=== PATIENT | male | born 1940 | race Hispanic/Latino ===

== ENCOUNTER 2021-12-01 08:10 | Inpatient (IN) | payer MEDICARE ==
[~2021-12-01] VITALS: Ht 160 cm; Wt 78.5 kg
[2021-12-01] MEDS ORDERED: SODIUM CHLORIDE 0.9% 1000ML 1,000 ML IV STA (08:40)
[2021-12-01] MEDS ORDERED: ONDANSETRON HCL INJ 2MG/ML 2ML 2 MG/ML VIAL IV STA (08:40)
[2021-12-01] MEDS ORDERED: Morphine 4mg Syringe 4 MG/ML INJ IV STA (08:40)
[2021-12-01] MEDS ORDERED: SODIUM CHLORIDE 0.9% 1000ML 1,000 ML ONE (09:27)
[2021-12-01] MEDS ORDERED: DEXTROSE 50% SYRINGE 50 ML IV PRN (09:30)
[2021-12-01] MEDS ORDERED: FLOMAX0.4 MG PO (11:16)
[2021-12-01] MEDS ORDERED: AMLODIPINE BESYL5 MG PO (11:16)
[2021-12-01] MEDS ORDERED: METFORMIN HCL500 MG PO (11:16)
[2021-12-01] MEDS ORDERED: IRBESARTAN150 MG PO (11:16)
[2021-12-01] MEDS ORDERED: ACTOS15 MG PO (11:16)
[2021-12-01] MEDS ORDERED: SYNTHROID50 MCG PO (11:16)
[2021-12-01] MEDS ORDERED: SIMVASTATIN40 MG PO (11:16)
[2021-12-01] MEDS ORDERED: NEURONTIN100 MG PO (11:16)
[2021-12-01] MEDS ORDERED: ASPIRIN81 MG PO (11:16)
[2021-12-01] MEDS: INSULIN REGULAR, HUMAN 100 UNIT/1 ML SQ SCH ×3 (11:30→21:00)
[2021-12-01 12:39] VITALS: BP 151/75
[2021-12-01 14:16] LABS: CREATINE KINASE 56 IU/L (30-200)
[2021-12-01 15:17] VITALS: BP 151/75
[2021-12-01 15:29] VITALS: BP 151/75
[2021-12-01 16:32] VITALS: BP 123/67
[2021-12-01 20:00] VITALS: BP 103/83
[2021-12-01 20:57] LABS: CREATINE KINASE 52 IU/L (30-200)
[2021-12-01] MEDS: ONDANSETRON HCL INJ 2MG/ML 2ML 2 MG/ML VIAL IV PRN (21:59)
[2021-12-01] MEDS: Morphine 4mg Syringe 4 MG/ML INJ IV PRN (21:59)
[2021-12-02] VITALS (7 sets, daily range): BP systolic 116–145; BP diastolic 47–76
[2021-12-02 07:11] LABS: BASOPHILS % 0.7 % (0.0-1.0); EOSINOPHILS # (AUTO) 0.2 (0.0-0.4); EOSINOPHILS % 3.8 % (0.0-6.0); HEMATOCRIT 37.8 % (38.2-49.6); HEMOGLOBIN 12.3 g/dL (14.0-18.0); LYMPHOCYTES # (AUTO) 0.7 (1.0-3.2); LYMPHOCYTES % 11.7 % (18.0-39.1); MEAN CORPUSCULAR HEMOGLOBIN 29.2 pg (28-32); MEAN CORPUSCULAR HGB CONC 32.5 g/dL (31-35); MEAN CORPUSCULAR VOLUME 89.8 fL (81-99); MONOCYTES # (AUTO) 0.7 (0.2-0.8); NEUTROPHILS # (AUTO) 4.1 (2.1-6.9); NEUTROPHILS % 70.6 % (38.7-80.0); PLATELET COUNT 522 x10e3/uL (140-360); RED BLOOD COUNT 4.21 x10e6/uL (4.3-5.7); RED CELL DISTRIBUTION WIDTH 14.1 % (11.7-14.4)
[2021-12-02] MEDS: INSULIN REGULAR, HUMAN 100 UNIT/1 ML SQ SCH ×4 (07:30→21:00)
[2021-12-02 07:31] LABS: CREATINE KINASE 48 IU/L (30-200)
[2021-12-02 07:33] LABS: ALBUMIN/GLOBULIN RATIO 0.7 (0.8-2.0); ANION GAP 13.2 mmol/L (8-16); CALCIUM 9.2 mg/dL (8.4-10.2); CREATININE, SERUM 2.53 mg/dL (0.72-1.25); POTASSIUM 5.2 mmol/L (3.5-5.1)
[2021-12-02] MEDS: Morphine 4mg Syringe 4 MG/ML INJ IV PRN (09:53)
[2021-12-02] MEDS: ONDANSETRON HCL INJ 2MG/ML 2ML 2 MG/ML VIAL IV PRN ×2 (09:53→13:00)
[2021-12-02] MEDS: TAMSULOSIN HCL 0.4 MG CAP PO SCH (09:54)
[2021-12-02] MEDS: AMLODIPINE BESYLATE 5 MG TAB PO SCH (09:54)
[2021-12-02] MEDS ORDERED: IRBESARTAN 150 MG TAB PO SCH (10:00)
[2021-12-02 11:06] LABS: CHOL/HDL RATIO 3.8 (3.9-4.7)
[2021-12-02] MEDS ORDERED: SODIUM CHLORIDE 0.9% 1000ML 1,000 ML IV ONE (11:30)
[2021-12-02] MEDS ORDERED: BISACODYL 10 MG SUPP PR ONE (11:45)
[2021-12-02] MEDS: DOCUSATE SODIUM 100 MG CAP PO SCH ×2 (11:45→16:15)
[2021-12-02] MEDS: SENNOSIDES 8.6 MG TAB PO SCH ×2 (11:45→22:16)
[2021-12-02] MEDS: GABAPENTIN 100 MG CAP PO SCH ×2 (15:00→22:16)
[2021-12-02] MEDS: SODIUM CHLORIDE 0.9% 1000ML 1,000 ML IV SCH (18:45)
[2021-12-02 19:51] LABS: CALCIUM 8.8 mg/dL (8.4-10.2); CREATININE, SERUM 2.27 mg/dL (0.72-1.25)
[2021-12-02] MEDS: SIMVASTATIN 40 MG TAB PO SCH (22:16)
[2021-12-02 23:13] LABS: CLARITY,URINE CLEAR (CLEAR); COLOR,URINE YELLOW (YELLOW); LEUKOCYTE ESTERASE ,URINE 1+ (NEGATIVE); NITRITE,URINE NEGATIVE (NEGATIVE); PROTEIN,URINE DIPSTICK TRACE (NEGATIVE)
[2021-12-02 23:14] LABS: KETONES,URINE 1+ (NEGATIVE); URINE UROBILINOGEN 0.2 mg/dL (0.2 - 1)
[2021-12-02 23:24] LABS: BACTERIA,URINE MODERATE /HPF; EPITHELIAL CELLS,URINE FEW /LPF; RBC,URINE 0-5 /HPF (0-5); WBC,URINE (MAN) >50 /HPF (0-5)
[2021-12-03] VITALS (8 sets, daily range): BP systolic 138–157; BP diastolic 61–70
[2021-12-03] MEDS: SODIUM CHLORIDE 0.9% 1000ML 1,000 ML IV SCH ×2 (00:28→14:45)
[2021-12-03] MEDS: LEVOTHYROXINE SODIUM 50 MCG TAB PO SCH (05:23)
[2021-12-03] MEDS ORDERED: SOD POLYSTYRENE SULFONATE SUSP 15 GM/60 ML BTL PO ONE (07:30)
[2021-12-03] MEDS: INSULIN REGULAR, HUMAN 100 UNIT/1 ML SQ SCH ×4 (07:30→20:22)
[2021-12-03] MEDS: GABAPENTIN 100 MG CAP PO SCH ×3 (09:00→20:19)
[2021-12-03] MEDS: DOCUSATE SODIUM 100 MG CAP PO SCH ×2 (09:00→15:55)
[2021-12-03] MEDS: ASPIRIN 81 MG CHEW TAB PO SCH (09:00)
[2021-12-03] MEDS: SENNOSIDES 8.6 MG TAB PO SCH ×2 (09:00→20:19)
[2021-12-03] MEDS: TAMSULOSIN HCL 0.4 MG CAP PO SCH (09:00)
[2021-12-03] MEDS: AMLODIPINE BESYLATE 5 MG TAB PO SCH (09:00)
[2021-12-03 10:39] LABS: ANION GAP 14.9 mmol/L (8-16); CALCIUM 8.9 mg/dL (8.4-10.2); CREATININE, SERUM 1.91 mg/dL (0.72-1.25); POTASSIUM 4.9 mmol/L (3.5-5.1)
[2021-12-03] MEDS: SIMVASTATIN 40 MG TAB PO SCH (20:19)
[2021-12-04] VITALS (7 sets, daily range): BP systolic 129–175; BP diastolic 60–83
[2021-12-04] MEDS: SODIUM CHLORIDE 0.9% 1000ML 1,000 ML IV SCH ×3 (00:47→21:30)
[2021-12-04] MEDS: LEVOTHYROXINE SODIUM 50 MCG TAB PO SCH (05:45)
[2021-12-04 05:58] LABS: BASOPHILS % 0.8 % (0.0-1.0); EOSINOPHILS # (AUTO) 0.2 (0.0-0.4); HEMATOCRIT 36.1 % (38.2-49.6); HEMOGLOBIN 11.5 g/dL (14.0-18.0); LYMPHOCYTES # (AUTO) 0.8 (1.0-3.2); LYMPHOCYTES % 17.8 % (18.0-39.1); MEAN CORPUSCULAR HEMOGLOBIN 29.3 pg (28-32); MEAN CORPUSCULAR HGB CONC 31.9 g/dL (31-35); MEAN CORPUSCULAR VOLUME 91.9 fL (81-99); MONOCYTES # (AUTO) 0.5 (0.2-0.8); NEUTROPHILS # (AUTO) 3.1 (2.1-6.9); NEUTROPHILS % 65.6 % (38.7-80.0); PLATELET COUNT 482 x10e3/uL (140-360); RED BLOOD COUNT 3.93 x10e6/uL (4.3-5.7); RED CELL DISTRIBUTION WIDTH 14.1 % (11.7-14.4)
[2021-12-04 06:25] LABS: ANION GAP 12.5 mmol/L (8-16); CALCIUM 8.7 mg/dL (8.4-10.2); CREATININE, SERUM 1.73 mg/dL (0.72-1.25); POTASSIUM 4.5 mmol/L (3.5-5.1)
[2021-12-04] MEDS: INSULIN REGULAR, HUMAN 100 UNIT/1 ML SQ SCH ×5 (07:30→21:53)
[2021-12-04] MEDS: DOCUSATE SODIUM 100 MG CAP PO SCH ×2 (08:45→16:22)
[2021-12-04] MEDS: GABAPENTIN 100 MG CAP PO SCH ×3 (08:45→21:30)
[2021-12-04] MEDS: SENNOSIDES 8.6 MG TAB PO SCH ×2 (08:45→21:00)
[2021-12-04] MEDS: ASPIRIN 81 MG CHEW TAB PO SCH (08:45)
[2021-12-04] MEDS: TAMSULOSIN HCL 0.4 MG CAP PO SCH (08:45)
[2021-12-04] MEDS: AMLODIPINE BESYLATE 5 MG TAB PO SCH (08:45)
[2021-12-04] MEDS: SIMVASTATIN 40 MG TAB PO SCH (21:30)
[2021-12-05] VITALS: BP 164/75
[2021-12-05 04:00] VITALS: BP 168/78
[2021-12-05 05:26] LABS: BASOPHILS % 0.9 % (0.0-1.0); EOSINOPHILS # (AUTO) 0.3 (0.0-0.4); EOSINOPHILS % 5.6 % (0.0-6.0); HEMATOCRIT 32.4 % (38.2-49.6); HEMOGLOBIN 10.3 g/dL (14.0-18.0); LYMPHOCYTES # (AUTO) 0.5 (1.0-3.2); LYMPHOCYTES % 12.2 % (18.0-39.1); MEAN CORPUSCULAR HEMOGLOBIN 28.9 pg (28-32); MEAN CORPUSCULAR HGB CONC 31.8 g/dL (31-35); MONOCYTES # (AUTO) 0.4 (0.2-0.8); MONOCYTES % 9.7 % (4.4-11.3); NEUTROPHILS # (AUTO) 3.1 (2.1-6.9); NEUTROPHILS % 70.7 % (38.7-80.0); PLATELET COUNT 421 x10e3/uL (140-360); RED BLOOD COUNT 3.56 x10e6/uL (4.3-5.7)
[2021-12-05 05:43] LABS: ANION GAP 12.1 mmol/L (8-16); CALCIUM 8.1 mg/dL (8.4-10.2); CREATININE, SERUM 1.53 mg/dL (0.72-1.25); POTASSIUM 5.1 mmol/L (3.5-5.1)
[2021-12-05] MEDS: SODIUM CHLORIDE 0.9% 1000ML 1,000 ML IV SCH ×2 (06:10→13:52)
[2021-12-05] MEDS: LEVOTHYROXINE SODIUM 50 MCG TAB PO SCH (06:10)
[2021-12-05] MEDS: INSULIN REGULAR, HUMAN 100 UNIT/1 ML SQ SCH ×2 (07:30→11:30)
[2021-12-05 08:47] VITALS: BP 171/81
[2021-12-05] MEDS: SENNOSIDES 8.6 MG TAB PO SCH (09:09)
[2021-12-05] MEDS: AMLODIPINE BESYLATE 5 MG TAB PO SCH (09:09)
[2021-12-05] MEDS: TAMSULOSIN HCL 0.4 MG CAP PO SCH (09:09)
[2021-12-05] MEDS: DOCUSATE SODIUM 100 MG CAP PO SCH (09:09)
[2021-12-05] MEDS: GABAPENTIN 100 MG CAP PO SCH (09:09)
[2021-12-05] MEDS: ASPIRIN 81 MG CHEW TAB PO SCH (09:09)
[2021-12-05 09:17] VITALS: BP 171/81
[2021-12-05] MEDS ORDERED: ONDANSETRON HCL 4 MG ORAL DISINTEGRATING TAB PO PRN (10:30)
[2021-12-05 12:25] VITALS: BP 149/71
== END 2021-12-05 14:49 | disposition home or self-care (01) | DRG 392 ==
LOC: FSED 08:18 → ERHOLD 09:26 → MED/SURG2 11:56 → OBSVTOIN 12-02 15:35
PROVIDERS: ADMIT Internal Medicine; ATTEND Internal Medicine
DX: K52.9 Noninfective gastroenteritis and colitis, unspecified (principal); N17.9 Acute kidney failure, unspecified; E11.65 Type 2 diabetes mellitus with hyperglycemia; I10 Essential (primary) hypertension; E03.9 Hypothyroidism, unspecified; E87.5 Hyperkalemia; E66.9 Obesity, unspecified; Z68.30 Body mass index [BMI] 30.0-30.9, adult; Z20.822 Contact with and (suspected) exposure to COVID-19; Z79.82 Long term (current) use of aspirin; Z79.84 Long term (current) use of oral hypoglycemic drugs
CPT/HCPCS: 36415; 74176; 76770; 80048; 80053; 80061; 81001; 82550; 82553; 82948; 83036; 84484; 85025; 93005; 96361; 96372; 99251; 99284; G0378; J1817; J2270; J2405; J7030; U0002

== ENCOUNTER 2022-04-11 00:02 | Emergency (ER) | payer MEDICARE ==
[~2022-04-11] VITALS: Ht 160 cm; Wt 78.5 kg
[~2022-04-11 00:02] MED LIST: ACTOS15 MG PO; AMLODIPINE BESYL5 MG PO; ASPIRIN81 MG PO; FLOMAX0.4 MG PO; IRBESARTAN150 MG PO; METFORMIN HCL500 MG PO; NEURONTIN100 MG PO; SIMVASTATIN40 MG PO; SYNTHROID50 MCG PO
[2022-04-11] MEDS ORDERED: ONDANSETRON HCL INJ 2MG/ML 2ML 2 MG/ML VIAL IV STA (00:33)
[2022-04-11] MEDS ORDERED: KETOROLAC TROMETHAMINE 30 MG/ML VIAL IV STA (00:33)
[2022-04-11] MEDS ORDERED: Morphine 2mg Syringe 2 MG/ML SYR IV ONE (00:45)
[2022-04-11] MEDS ORDERED: KETOROLAC TROMETHAMINE 30 MG/ML VIAL ONE (01:11)
[2022-04-11] MEDS ORDERED: ONDANSETRON HCL INJ 2MG/ML 2ML 2 MG/ML VIAL ONE (01:12)
[2022-04-11] MEDS ORDERED: Morphine 4mg INJECTION 4 MG/ML INJ ONE (01:13)
[2022-04-11] MEDS ORDERED: CEFDINIR300 MG PO (02:34)
[2022-04-11] MEDS ORDERED: KETOROLAC TROME10 MG PO (02:34)
[2022-04-11 02:50] VITALS: BP 130/60
== END 2022-04-11 02:50 | disposition home or self-care (01) ==
LOC: FSED 00:06
DX: R10.9 Unspecified abdominal pain (principal); N13.2 Hydronephrosis with renal and ureteral calculous obstruction; M54.50 Low back pain, unspecified; E11.9 Type 2 diabetes mellitus without complications; E78.5 Hyperlipidemia, unspecified; E03.9 Hypothyroidism, unspecified; Z89.511 Acquired absence of right leg below knee
CPT/HCPCS: 74176; 80048; 80076; 81003; 85025; 96374; 96375; 96376; 99284; J1885; J2270; J2405

== ENCOUNTER 2022-04-14 22:03 | Emergency (ER) | payer MEDICARE ==
[~2022-04-14] VITALS: Ht 160 cm; Wt 78.5 kg
[~2022-04-14 22:03] MED LIST changes: +CEFDINIR300 MG PO; +KETOROLAC TROME10 MG PO
[2022-04-14] MEDS ORDERED: KETOROLAC TROME10 MG PO (22:10)
== END 2022-04-14 22:23 | disposition home or self-care (01) ==
LOC: ER 22:13
DX: R06.6 Hiccough (principal); R10.9 Unspecified abdominal pain; E11.9 Type 2 diabetes mellitus without complications; E78.5 Hyperlipidemia, unspecified; E03.9 Hypothyroidism, unspecified; Z89.511 Acquired absence of right leg below knee
CPT/HCPCS: 99282

== ENCOUNTER 2022-04-18 05:36 | Inpatient (IN) | payer MEDICARE ==
[2022-04-18] VITALS (7 sets, daily range): BP systolic 140–155; BP diastolic 70–83
[~2022-04-18] VITALS: Ht 160 cm; Wt 78.5 kg
[2022-04-18] MEDS ORDERED: SODIUM CHLORIDE 0.9% 1000ML 1,000 ML IV STA (06:06)
[2022-04-18 06:24] LABS: BASOPHILS % 0.4 % (0.0-1.0); EOSINOPHILS # (AUTO) 0.1 (0.0-0.4); HEMATOCRIT 32.2 % (38.2-49.6); HEMOGLOBIN 11.1 g/dL (14.0-18.0); LYMPHOCYTES # (AUTO) 0.5 (1.0-3.2); LYMPHOCYTES % 4.1 % (18.0-39.1); MEAN CORPUSCULAR HEMOGLOBIN 28.5 pg (28-32); MEAN CORPUSCULAR HGB CONC 34.5 g/dL (31-35); MEAN CORPUSCULAR VOLUME 82.8 fL (81-99); MONOCYTES # (AUTO) 0.8 (0.2-0.8); NEUTROPHILS # (AUTO) 9.1 (2.1-6.9); NEUTROPHILS % 81.8 % (38.7-80.0); PLATELET COUNT 315 x10e3/uL (140-360); RED BLOOD COUNT 3.89 x10e6/uL (4.3-5.7); RED CELL DISTRIBUTION WIDTH 14.9 % (11.7-14.4)
[2022-04-18 06:47] LABS: ALANINE AMINOTRANSFERASE 39 IU/L (0-55); ALBUMIN 2.8 g/dL (3.5-5.0); ALBUMIN/GLOBULIN RATIO 0.7 (0.8-2.0); ALKALINE PHOSPHATASE 150 IU/L (40-150); ANION GAP 18.5 mmol/L (8-16); BLOOD UREA NITROGEN 56 mg/dL (7-26); BUN/CREATININE RATIO 15 (6-25); CALCIUM 8.8 mg/dL (8.4-10.2); CARBON DIOXIDE 22 mmol/L (22-29); CHLORIDE 91 mmol/L (98-107); CREATINE KINASE 12 IU/L (30-200); GLUCOSE 277 mg/dL (74-118); LIPASE 226 U/L (8-78); MAGNESIUM 1.6 MG/DL (1.3-2.1); POTASSIUM 4.5 mmol/L (3.5-5.1); SODIUM 127 mmol/L (136-145)
[2022-04-18 06:48] LABS: CLARITY,URINE CLOUDY (CLEAR); COLOR,URINE YELLOW (YELLOW); KETONES,URINE TRACE (NEGATIVE); LEUKOCYTE ESTERASE ,URINE SMALL (NEGATIVE); NITRITE,URINE NEGATIVE (NEGATIVE); PROTEIN,URINE DIPSTICK 2+ (NEGATIVE); URINE UROBILINOGEN 0.2 mg/dL (0.2 - 1)
[2022-04-18 07:04] LABS: WBC,URINE (MAN) >50 /HPF (0-5)
[2022-04-18 07:05] LABS: BACTERIA,URINE MODERATE /HPF; EPITHELIAL CELLS,URINE FEW /LPF
[2022-04-18] MEDS ORDERED: ONDANSETRON HCL INJ 2MG/ML 2ML 2 MG/ML VIAL IV PRN (07:45)
[2022-04-18 12:42] LABS: CREATINE KINASE 11 IU/L (30-200)
[2022-04-18] MEDS: SODIUM CHLORIDE 0.9% 1000ML 1,000 ML IV SCH ×2 (12:48→17:45)
[2022-04-18] MEDS: FAMOTIDINE 20 MG/2 ML VIAL IV SCH ×2 (12:48→21:00)
[2022-04-18 18:52] LABS: CREATINE KINASE 7 IU/L (30-200)
[2022-04-18] MEDS ORDERED: ACETAMINOPHEN 325 MG TAB PO PRN (20:30)
[2022-04-18] MEDS: GABAPENTIN 100 MG CAP PO SCH (21:00)
[2022-04-18] MEDS: SIMVASTATIN 40 MG TAB PO SCH (21:00)
[2022-04-19] VITALS (8 sets, daily range): BP systolic 104–170; BP diastolic 62–79
[2022-04-19] MEDS: SODIUM CHLORIDE 0.9% 1000ML 1,000 ML IV SCH ×2 (00:40→15:47)
[2022-04-19] MEDS: LEVOTHYROXINE SODIUM 50 MCG TAB PO SCH (05:47)
[2022-04-19 05:48] LABS: BASOPHILS # (AUTO) 0.1 (0.0-0.1); BASOPHILS % 0.5 % (0.0-1.0); EOSINOPHILS # (AUTO) 0.2 (0.0-0.4); EOSINOPHILS % 1.3 % (0.0-6.0); HEMATOCRIT 33.8 % (38.2-49.6); HEMOGLOBIN 11.6 g/dL (14.0-18.0); LYMPHOCYTES # (AUTO) 0.8 (1.0-3.2); LYMPHOCYTES % 6.6 % (18.0-39.1); MEAN CORPUSCULAR HEMOGLOBIN 28.3 pg (28-32); MEAN CORPUSCULAR HGB CONC 34.3 g/dL (31-35); MEAN CORPUSCULAR VOLUME 82.4 fL (81-99); MONOCYTES # (AUTO) 0.9 (0.2-0.8); MONOCYTES % 7.8 % (4.4-11.3); NEUTROPHILS # (AUTO) 9.2 (2.1-6.9); PLATELET COUNT 353 x10e3/uL (140-360); RED CELL DISTRIBUTION WIDTH 15.3 % (11.7-14.4)
[2022-04-19 06:18] LABS: ALBUMIN 2.5 g/dL (3.5-5.0); ALBUMIN/GLOBULIN RATIO 0.7 (0.8-2.0); CALCIUM 8.7 mg/dL (8.4-10.2); CHOL/HDL RATIO 7.8 (3.9-4.7); CREATININE, SERUM 3.08 mg/dL (0.72-1.25)
[2022-04-19 06:39] LABS: CREATINE KINASE MB 0.4 ng/mL (0-5.0)
[2022-04-19] MEDS: TAMSULOSIN HCL 0.4 MG CAP PO SCH (08:48)
[2022-04-19] MEDS: GABAPENTIN 100 MG CAP PO SCH ×3 (08:48→20:29)
[2022-04-19] MEDS: AMLODIPINE BESYLATE 5 MG TAB PO SCH (08:48)
[2022-04-19] MEDS: ASPIRIN 81 MG CHEW TAB PO SCH (08:48)
[2022-04-19] MEDS: FAMOTIDINE 20 MG/2 ML VIAL IV SCH ×2 (08:49→20:29)
[2022-04-19] MEDS ORDERED: CHLORPROMAZINE HCL 25 MG TAB PO PRN (11:30)
[2022-04-19] MEDS ORDERED: DEXTROSE 50% SYRINGE 50 ML IV PRN (11:45)
[2022-04-19] MEDS: INSULIN REGULAR, HUMAN 100 UNIT/1 ML SQ SCH ×3 (12:07→20:37)
[2022-04-19] MEDS: SIMVASTATIN 40 MG TAB PO SCH (20:29)
[2022-04-20] VITALS (8 sets, daily range): BP systolic 118–141; BP diastolic 62–70
[2022-04-20] MEDS: SODIUM CHLORIDE 0.9% 1000ML 1,000 ML IV SCH ×3 (01:42→20:15)
[2022-04-20] MEDS: LEVOTHYROXINE SODIUM 50 MCG TAB PO SCH (05:34)
[2022-04-20] MEDS: FAMOTIDINE 20 MG/2 ML VIAL IV SCH ×2 (08:22→20:14)
[2022-04-20] MEDS: GABAPENTIN 100 MG CAP PO SCH ×3 (08:22→20:14)
[2022-04-20] MEDS: TAMSULOSIN HCL 0.4 MG CAP PO SCH (08:22)
[2022-04-20] MEDS: AMLODIPINE BESYLATE 5 MG TAB PO SCH (08:22)
[2022-04-20] MEDS: ASPIRIN 81 MG CHEW TAB PO SCH (08:22)
[2022-04-20] MEDS: INSULIN REGULAR, HUMAN 100 UNIT/1 ML SQ SCH ×4 (08:31→20:48)
[2022-04-20 10:53] LABS: BASOPHILS # (AUTO) 0.1 (0.0-0.1); BASOPHILS % 0.4 % (0.0-1.0); EOSINOPHILS # (AUTO) 0.2 (0.0-0.4); EOSINOPHILS % 1.4 % (0.0-6.0); HEMATOCRIT 30.5 % (38.2-49.6); HEMOGLOBIN 10.3 g/dL (14.0-18.0); LYMPHOCYTES # (AUTO) 0.7 (1.0-3.2); LYMPHOCYTES % 4.8 % (18.0-39.1); MEAN CORPUSCULAR HEMOGLOBIN 28.3 pg (28-32); MEAN CORPUSCULAR HGB CONC 33.8 g/dL (31-35); MEAN CORPUSCULAR VOLUME 83.8 fL (81-99); MONOCYTES # (AUTO) 1.2 (0.2-0.8); MONOCYTES % 8.6 % (4.4-11.3); NEUTROPHILS # (AUTO) 10.6 (2.1-6.9); NEUTROPHILS % 77.7 % (38.7-80.0); PLATELET COUNT 329 x10e3/uL (140-360); RED BLOOD COUNT 3.64 x10e6/uL (4.3-5.7); RED CELL DISTRIBUTION WIDTH 15.7 % (11.7-14.4)
[2022-04-20] MEDS: LEVOFLOXACIN 250MG/D5W 50ML 50 ML IV SCH (10:57)
[2022-04-20] MEDS ORDERED: LEVOFLOXACIN 250MG/D5W 50ML 50 ML ONE (11:08)
[2022-04-20 11:10] LABS: ANION GAP 12.7 mmol/L (8-16); CALCIUM 8.1 mg/dL (8.4-10.2); CREATININE, SERUM 2.68 mg/dL (0.72-1.25); POTASSIUM 3.7 mmol/L (3.5-5.1)
[2022-04-20 14:53] LABS: EOSINOPHILS % (MANUAL) 1 % (0-7); LYMPHOCYTES % (MANUAL) 5 % (19-48); MONOCYTES % (MANUAL) 9 % (3.4-9.0); NEUTROPHILS % (MANUAL) 85 % (40-74); PLATELET ESTIMATE ADEQUATE; PLATELET MORPHOLOGY COMMENT NORMAL; RBC MORPHOLOGY COMMENT NORMAL
[2022-04-20 18:43] LABS: CREATININE,URINE RANDOM 25.15 mg/dL (63-166); TOTAL PROTEIN, URINE 29.3 mg/dL (1-14)
[2022-04-20] MEDS: SIMVASTATIN 40 MG TAB PO SCH (20:14)
[2022-04-21] VITALS (8 sets, daily range): BP systolic 139–166; BP diastolic 64–76
[2022-04-21] MEDS: LEVOTHYROXINE SODIUM 50 MCG TAB PO SCH (05:26)
[2022-04-21] MEDS: SODIUM CHLORIDE 0.9% 1000ML 1,000 ML IV SCH ×2 (05:26→16:00)
[2022-04-21 06:12] LABS: BASOPHILS # (AUTO) 0.1 (0.0-0.1); BASOPHILS % 0.5 % (0.0-1.0); EOSINOPHILS # (AUTO) 0.3 (0.0-0.4); EOSINOPHILS % 2.1 % (0.0-6.0); HEMATOCRIT 30.2 % (38.2-49.6); HEMOGLOBIN 10.6 g/dL (14.0-18.0); LYMPHOCYTES # (AUTO) 0.7 (1.0-3.2); LYMPHOCYTES % 4.8 % (18.0-39.1); MEAN CORPUSCULAR HEMOGLOBIN 28.9 pg (28-32); MEAN CORPUSCULAR HGB CONC 35.1 g/dL (31-35); MEAN CORPUSCULAR VOLUME 82.3 fL (81-99); MONOCYTES # (AUTO) 1.2 (0.2-0.8); MONOCYTES % 8.1 % (4.4-11.3); NEUTROPHILS # (AUTO) 11.2 (2.1-6.9); NEUTROPHILS % 76.5 % (38.7-80.0); PLATELET COUNT 389 x10e3/uL (140-360); RED BLOOD COUNT 3.67 x10e6/uL (4.3-5.7)
[2022-04-21 06:29] LABS: ANION GAP 16.9 mmol/L (8-16); CALCIUM 8.3 mg/dL (8.4-10.2); CREATININE, SERUM 2.49 mg/dL (0.72-1.25); POTASSIUM 3.9 mmol/L (3.5-5.1)
[2022-04-21 07:00] LABS: MAGNESIUM 1.5 MG/DL (1.3-2.1); PHOSPHORUS 2.9 MG/DL (2.3-4.7)
[2022-04-21] MEDS ORDERED: ONDANSETRON HCL 4 MG ORAL DISINTEGRATING TAB PO PRN (09:00)
[2022-04-21] MEDS: AMLODIPINE BESYLATE 5 MG TAB PO SCH (09:00)
[2022-04-21] MEDS: TAMSULOSIN HCL 0.4 MG CAP PO SCH (09:00)
[2022-04-21] MEDS: ASPIRIN 81 MG CHEW TAB PO SCH (09:00)
[2022-04-21] MEDS: GABAPENTIN 100 MG CAP PO SCH ×3 (09:00→22:56)
[2022-04-21] MEDS: FAMOTIDINE 20 MG/2 ML VIAL IV SCH ×2 (09:27→22:56)
[2022-04-21] MEDS: INSULIN REGULAR, HUMAN 100 UNIT/1 ML SQ SCH ×4 (10:02→22:57)
[2022-04-21] MEDS: LEVOFLOXACIN 250MG/D5W 50ML 50 ML IV SCH (11:39)
[2022-04-21] MEDS ORDERED: FUROSEMIDE INJ 10 MG/ML 4 ML VIAL ONE (14:28)
[2022-04-21] MEDS ORDERED: MAGNESIUM SULFATE 2GM/50ML 50 ML IV ONE (17:00)
[2022-04-21] MEDS: SIMVASTATIN 40 MG TAB PO SCH (22:56)
[2022-04-22] VITALS (8 sets, daily range): BP systolic 104–154; BP diastolic 51–74
[2022-04-22] MEDS: METOCLOPRAMIDE HCL 10 MG/2ML VIAL IV SCH ×4 (00:18→17:07)
[2022-04-22] MEDS: LEVOTHYROXINE SODIUM 50 MCG TAB PO SCH (05:18)
[2022-04-22] MEDS: SODIUM CHLORIDE 0.9% 1000ML 1,000 ML IV SCH ×2 (05:18→11:45)
[2022-04-22 08:02] LABS: ANION GAP 18.8 mmol/L (8-16); CALCIUM 8.9 mg/dL (8.4-10.2); CREATININE, SERUM 2.52 mg/dL (0.72-1.25); MAGNESIUM 2.2 MG/DL (1.3-2.1); POTASSIUM 3.8 mmol/L (3.5-5.1)
[2022-04-22] MEDS ORDERED: METOCLOPRAMIDE HCL 10 MG TAB PO SCH (09:00)
[2022-04-22] MEDS: AMLODIPINE BESYLATE 5 MG TAB PO SCH (09:58)
[2022-04-22] MEDS: TAMSULOSIN HCL 0.4 MG CAP PO SCH (09:58)
[2022-04-22] MEDS: FAMOTIDINE 20 MG/2 ML VIAL IV SCH ×2 (09:58→21:56)
[2022-04-22] MEDS: ASPIRIN 81 MG CHEW TAB PO SCH (09:58)
[2022-04-22] MEDS: GABAPENTIN 100 MG CAP PO SCH ×3 (10:04→21:56)
[2022-04-22] MEDS: INSULIN REGULAR, HUMAN 100 UNIT/1 ML SQ SCH ×4 (11:30→21:59)
[2022-04-22] MEDS: LEVOFLOXACIN 250MG/D5W 50ML 50 ML IV SCH (12:26)
[2022-04-22] MEDS: SIMVASTATIN 40 MG TAB PO SCH (21:56)
[2022-04-23] VITALS (8 sets, daily range): BP systolic 97–143; BP diastolic 56–80
[2022-04-23] MEDS: METOCLOPRAMIDE HCL 10 MG/2ML VIAL IV SCH ×5 (00:39→23:09)
[2022-04-23 06:18] LABS: BASOPHILS # (AUTO) 0.1 (0.0-0.1); BASOPHILS % 0.4 % (0.0-1.0); EOSINOPHILS # (AUTO) 0.4 (0.0-0.4); EOSINOPHILS % 3.4 % (0.0-6.0); HEMATOCRIT 28.4 % (38.2-49.6); HEMOGLOBIN 9.3 g/dL (14.0-18.0); LYMPHOCYTES # (AUTO) 0.7 (1.0-3.2); LYMPHOCYTES % 6.1 % (18.0-39.1); MEAN CORPUSCULAR HEMOGLOBIN 28.3 pg (28-32); MEAN CORPUSCULAR HGB CONC 32.7 g/dL (31-35); MEAN CORPUSCULAR VOLUME 86.3 fL (81-99); MONOCYTES # (AUTO) 1.1 (0.2-0.8); MONOCYTES % 8.7 % (4.4-11.3); NEUTROPHILS # (AUTO) 9.2 (2.1-6.9); NEUTROPHILS % 74.9 % (38.7-80.0); PLATELET COUNT 411 x10e3/uL (140-360); RED BLOOD COUNT 3.29 x10e6/uL (4.3-5.7); RED CELL DISTRIBUTION WIDTH 16.2 % (11.7-14.4)
[2022-04-23 06:39] LABS: ANION GAP 14.4 mmol/L (8-16); CREATININE, SERUM 2.46 mg/dL (0.72-1.25); POTASSIUM 3.4 mmol/L (3.5-5.1)
[2022-04-23] MEDS: LEVOTHYROXINE SODIUM 50 MCG TAB PO SCH (06:44)
[2022-04-23] MEDS: SODIUM CHLORIDE 0.9% 1000ML 1,000 ML IV SCH ×2 (06:44→20:38)
[2022-04-23] MEDS: INSULIN REGULAR, HUMAN 100 UNIT/1 ML SQ SCH ×4 (07:30→22:05)
[2022-04-23] MEDS: FAMOTIDINE 20 MG/2 ML VIAL IV SCH ×2 (09:00→20:38)
[2022-04-23] MEDS: ASPIRIN 81 MG CHEW TAB PO SCH (09:00)
[2022-04-23] MEDS: GABAPENTIN 100 MG CAP PO SCH ×3 (09:00→20:38)
[2022-04-23] MEDS: AMLODIPINE BESYLATE 5 MG TAB PO SCH (09:00)
[2022-04-23] MEDS: TAMSULOSIN HCL 0.4 MG CAP PO SCH (09:00)
[2022-04-23] MEDS: LEVOFLOXACIN 250MG/D5W 50ML 50 ML IV SCH (11:00)
[2022-04-23] MEDS ORDERED: MAGNESIUM HYDROXIDE 30 ML UDC PO PRN (13:45)
[2022-04-23] MEDS: DOCUSATE SODIUM 100 MG CAP PO SCH (15:03)
[2022-04-23] MEDS: SIMVASTATIN 40 MG TAB PO SCH (20:39)
[2022-04-24 00:44] VITALS: BP 122/56
[2022-04-24] MEDS: SODIUM CHLORIDE 0.9% 1000ML 1,000 ML IV SCH (02:08)
[2022-04-24 04:30] VITALS: BP 143/65
[2022-04-24] MEDS: LEVOTHYROXINE SODIUM 50 MCG TAB PO SCH (05:39)
[2022-04-24] MEDS: METOCLOPRAMIDE HCL 10 MG/2ML VIAL IV SCH (05:39)
[2022-04-24 08:10] VITALS: BP 159/72
[2022-04-24 08:46] VITALS: BP 159/72
[2022-04-24] MEDS ORDERED: SENNOSIDES 8.6 MG TAB PO SCH (09:00)
[2022-04-24] MEDS: GABAPENTIN 100 MG CAP PO SCH (09:32)
[2022-04-24] MEDS: AMLODIPINE BESYLATE 5 MG TAB PO SCH (09:32)
[2022-04-24] MEDS: TAMSULOSIN HCL 0.4 MG CAP PO SCH (09:32)
[2022-04-24] MEDS: ASPIRIN 81 MG CHEW TAB PO SCH (09:33)
[2022-04-24] MEDS: DOCUSATE SODIUM 100 MG CAP PO SCH (09:33)
[2022-04-24] MEDS: FAMOTIDINE 20 MG/2 ML VIAL IV SCH (09:33)
[2022-04-24] MEDS: INSULIN REGULAR, HUMAN 100 UNIT/1 ML SQ SCH (09:41)
[2022-04-24] MEDS ORDERED: PANTOPRAZOLE SO40 MG PO (10:28)
[2022-04-24] MEDS ORDERED: Docusate Sodium PO (10:28)
[2022-04-24] MEDS ORDERED: REGLAN5 MG PO (10:29)
[2022-04-24] MEDS ORDERED: LEVOFLOXACIN250 MG PO (10:31)
== END 2022-04-24 10:59 | disposition home or self-care (01) | DRG 683 ==
LOC: ER 05:46 → ERHOLD 07:44 → MED/SURG3 09:45
PROVIDERS: ADMIT Internal Medicine; ATTEND Internal Medicine
DX: N17.9 Acute kidney failure, unspecified (principal); E87.1 Hypo-osmolality and hyponatremia; N13.8 Other obstructive and reflux uropathy; K21.9 Gastro-esophageal reflux disease without esophagitis; N13.6 Pyonephrosis; N18.4 Chronic kidney disease, stage 4 (severe); N10 Acute pyelonephritis; R06.6 Hiccough; Z89.511 Acquired absence of right leg below knee; Z89.412 Acquired absence of left great toe; Z20.822 Contact with and (suspected) exposure to COVID-19; E78.5 Hyperlipidemia, unspecified; E11.69 Type 2 diabetes mellitus with other specified complication; Z79.4 Long term (current) use of insulin; F32.A Depression, unspecified; E11.65 Type 2 diabetes mellitus with hyperglycemia; E11.22 Type 2 diabetes mellitus with diabetic chronic kidney disease; I12.9 Hypertensive chronic kidney disease with stage 1 through stage 4 chronic kidney disease, or unspecified chronic kidney disease; E66.09 Other obesity due to excess calories; Z68.30 Body mass index [BMI] 30.0-30.9, adult; D64.9 Anemia, unspecified; R31.29 Other microscopic hematuria; R13.10 Dysphagia, unspecified; E03.9 Hypothyroidism, unspecified; N40.1 Benign prostatic hyperplasia with lower urinary tract symptoms; R33.8 Other retention of urine; B96.89 Other specified bacterial agents as the cause of diseases classified elsewhere; E83.42 Hypomagnesemia
CPT/HCPCS: 36415; 51700; 71045; 74176; 78708; 80048; 80053; 80061; 81001; 82550; 82553; 82570; 82948; 83518; 83690; 83735; 84100; 84156; 84443; 84484; 85025; 87070; 87086; 87186; 93005; 96361; 99251; 99285; A9562; J0696; J1817; J1940; J1956; J2405; J2765; J3475; J7030

== ENCOUNTER 2022-05-19 11:11 | Emergency (ER) | payer MEDICARE ==
[~2022-05-19] VITALS: Ht 160 cm; Wt 78.5 kg
[~2022-05-19 11:11] MED LIST changes: +Docusate Sodium PO; +LEVOFLOXACIN250 MG PO; +PANTOPRAZOLE SO40 MG PO; +REGLAN5 MG PO
== END 2022-05-19 11:49 | disposition home or self-care (01) ==
LOC: ER 11:16
DX: Z46.6 Encounter for fitting and adjustment of urinary device (principal); I10 Essential (primary) hypertension; E11.9 Type 2 diabetes mellitus without complications; E78.5 Hyperlipidemia, unspecified; E03.9 Hypothyroidism, unspecified; Z89.511 Acquired absence of right leg below knee; Z87.442 Personal history of urinary calculi
CPT/HCPCS: 99282

== ENCOUNTER → 2024-03-14 | Outpatient (REF) | payer MEDICARE ==
[~2024-03-14] MED LIST changes: +B-121000 MCG PO; +BACTRIM 400-801 EACH PO; +DICYCLOMINE HCL20 MG PO; +FEROSUL325 MG PO; +FOLIC ACID PO; +KEFLEX125 MG/5 M PO; +LEVOTHYROXINE25 MCG PO; +LOSARTAN POTASS50 MG PO; +MIRTAZAPINE15 MG PO; +POTASSIUM CITR15 MEQ PO; +ROSUVASTATIN CA20 MG PO; +SUCRALFATE1 GM PO; +TERBINAFINE HC250 MG PO; +TOUJEO MAX300 UNIT/1 SQ
[2024-03-14 08:53] LABS: CREATININE, SERUM 2.46 mg/dL (0.72-1.25)
== END ==
LOC: CT 08:08
PROVIDERS: ATTEND Urology
DX: C61 Malignant neoplasm of prostate (principal)
CPT/HCPCS: 36415; 71250; 82565; 84520

== ENCOUNTER 2025-01-08 21:33 | Emergency (ER) | payer MEDICARE ==
[~2025-01-08] VITALS: Ht 160 cm; Wt 66.2 kg
[2025-01-08] MEDS: INSULIN REGULAR, HUMAN 100 UNIT/1 ML IV ONE (20:30)
[2025-01-08 21:41] VITALS: TEMP 97.8
[2025-01-08] MEDS: SODIUM CHLORIDE 0.9% 1000ML 1,000 ML IV STA (22:03)
[2025-01-08] MEDS: DIPHENHYDRAMINE HCL INJ 50 MG/ML VIAL IV ONE (22:05)
[2025-01-08] MEDS: ONDANSETRON HCL INJ 2MG/ML 2ML 2 MG/ML VIAL IV ONE (22:05)
[2025-01-08] MEDS: FAMOTIDINE 20 MG/2 ML VIAL IV ONE (22:06)
[2025-01-08 22:33] VITALS: PULSE 68; RESP 16
[2025-01-08] MEDS ORDERED: PANTOPRAZOLE SO40 MG PO (23:30)
[2025-01-08] MEDS ORDERED: DIPHENHYDRAMINE25 M2 PO (23:30)
[2025-01-08] MEDS ORDERED: ONDANSETRON ODT4 MG PO (23:30)
[2025-01-08 23:33] VITALS: BP 156/70; PULSE 67; RESP 18; TEMP 98; O2SAT 97
== END 2025-01-08 23:33 | disposition home or self-care (01) ==
LOC: FSED 21:35
DX: R11.2 Nausea with vomiting, unspecified (principal); K31.84 Gastroparesis; K20.90 Esophagitis, unspecified without bleeding; I16.0 Hypertensive urgency; E86.0 Dehydration; I12.9 Hypertensive chronic kidney disease with stage 1 through stage 4 chronic kidney disease, or unspecified chronic kidney disease; E11.22 Type 2 diabetes mellitus with diabetic chronic kidney disease; E11.65 Type 2 diabetes mellitus with hyperglycemia; N18.9 Chronic kidney disease, unspecified; E03.9 Hypothyroidism, unspecified; E78.5 Hyperlipidemia, unspecified; Z89.511 Acquired absence of right leg below knee; Z87.442 Personal history of urinary calculi
CPT/HCPCS: 74176; 80048; 80076; 81003; 84484; 85025; 99284; J1200; J1308; J2405; J7030